=== PATIENT | female | born 1955 | race Caucasian/White ===

== ENCOUNTER → 2023-05-12 11:14 | Outpatient (REF) | payer MEDICARE, OTHER, SELFPAY | LOC: RAD 11:14 | PROVIDERS: ATTENDING PHYSICIAN Internal Medicine | DX: R79.89 Other specified abnormal findings of blood chemistry (principal) | CPT/HCPCS: 76770 ==

== ENCOUNTER → 2023-05-19 12:55 | Outpatient (REF) | payer MEDICARE, OTHER, SELFPAY ==
[2023-05-19 19:19] LABS: Urine Albumin Trace (Neg - Trace); Urine Bilirubin 1+ (Negative); Urine Character Clear (Clear); Urine Color Yellow; Urine Glucose Negative (Negative); Urine Ketone Trace (Negative); Urine Leukocyte 2+ (Negative); Urine Nitrite Positive (Negative); Urine Occult Blood Negative (Negative); Urine Urobilinogen Negative (Neg - 1+)
[2023-05-19 19:25] LABS: Urine Squamous Cell >30 /LPF (Few)
[2023-05-19 19:26] LABS: Urine Bacteria Many (Negative); Urine Red Blood Cell None Seen /HPF (0-2); Urine White Cell 30-40 /HPF (0-5)
== END ==
LOC: CLAB 12:55
PROVIDERS: ATTENDING PHYSICIAN Internal Medicine
DX: R82.90 Unspecified abnormal findings in urine (principal); R31.9 Hematuria, unspecified
CPT/HCPCS: 81003; 81015; 87077; 87086; 87186

== ENCOUNTER → 2023-07-07 06:29 | Day surgery (SDC) | payer MEDICARE, OTHER, SELFPAY ==
[2023-07-07 12:53] LABS: Glucose - Point of Care 119 mg/dl (70-99)
== END ==
LOC: GI 06:29
PROVIDERS: ATTENDING PHYSICIAN Internal Medicine Gastroenterology; FAMILY PHYSICIAN Internal Medicine
DX: Z12.11 Encounter for screening for malignant neoplasm of colon (principal); K64.8 Other hemorrhoids; K57.30 Diverticulosis of large intestine without perforation or abscess without bleeding; R12 Heartburn; R13.10 Dysphagia, unspecified; K31.89 Other diseases of stomach and duodenum; K31.7 Polyp of stomach and duodenum; K29.50 Unspecified chronic gastritis without bleeding; Z86.010 Personal history of colon polyps
CPT/HCPCS: 43239; G0105; 88305; 82962; 88342

== ENCOUNTER → 2023-07-22 09:24 | Outpatient (REF) | payer MEDICARE, OTHER, SELFPAY ==
[2023-07-22 10:48] LABS: ALT (SGPT) < 10 U/L (0-35); AST (SGOT) 32 U/L (14-36); Albumin 4.3 g/dl (3.5-5.0); Alkaline Phosphatase 81 U/L (38-126); Blood Urea Nitrogen 18 mg/dl (7-17); Calcium 9.7 mg/dl (8.4-10.2); Carbon Dioxide 27 mmol/L (22-30); Chloride 104 mmol/L (98-107); Glucose 148 mg/dl (70-99); Phosphorus 4.3 mg/dl (2.5-4.5); Potassium 4.4 mmol/L (3.5-5.1); Sodium 136 mmol/L (135-145); Total Bilirubin 0.6 mg/dl (0.2-1.3); Total Protein 6.8 g/dl (6.3-8.2); Uric Acid 6.5 mg/dl (2.5-6.2)
[2023-07-22 10:55] LABS: Intact PTH 64.1 pg/ml (13.6-85.8)
[2023-07-22 12:01] LABS: Calcium 9.6 mg/dl (8.4-10.2)
[2023-07-22 12:12] LABS: Glycohemoglobin (HgbA1c) 6.7 % (4.0-5.6)
[2023-07-22 13:49] LABS: Urine Protein 7 mg/dl
[2023-07-23 16:10] LABS: Angiotensin-1-converting Enzym 21 U/L (16-85)
[2023-07-23 22:02] LABS: ANA, IgG Reflex to HEp-2 None Detected (None Detected)
[2023-07-25 15:06] LABS: 24 Hour Urine Total Volume Random mL; Urine Collection Length Random hr; Urine Free Kappa Light Chains 45.67 mg/L (0.00-32.90); Urine Free Lambda Light Chains 4.76 mg/L (0.00-3.79)
== END ==
LOC: REG 09:24
PROVIDERS: ATTENDING PHYSICIAN Specialist; FAMILY PHYSICIAN Internal Medicine
DX: E11.69 Type 2 diabetes mellitus with other specified complication (principal); R79.89 Other specified abnormal findings of blood chemistry
CPT/HCPCS: 36415; 80053; 82164; 82570; 83036; 83521; 83970; 84100; 84156; 84550; 86038; 86335

== ENCOUNTER → 2023-12-24 10:44 | Outpatient (REF) | payer MEDICARE, OTHER, SELFPAY ==
[2023-12-24 12:45] LABS: ALT (SGPT) < 10 U/L (0-35); AST (SGOT) 34 U/L (14-36); Albumin 4.3 g/dl (3.5-5.0); Alkaline Phosphatase 92 U/L (38-126); Blood Urea Nitrogen 21 mg/dl (7-17); Calcium 9.7 mg/dl (8.4-10.2); Carbon Dioxide 28 mmol/L (22-30); Chloride 104 mmol/L (98-107); Glucose 162 mg/dl (70-99); HDL Cholesterol 46 mg/dl; LDL Cholesterol, Calculated 125 mg/dl; Potassium 4.3 mmol/L (3.5-5.1); Sodium 144 mmol/L (135-145); Total Bilirubin 0.7 mg/dl (0.2-1.3); Total Cholesterol 212 mg/dl (50-199); Total Protein 6.7 g/dl (6.3-8.2); Triglyceride 205 mg/dl (10-149); Very Low Density Lipoprotein 41 mg/dl (0-30)
[2023-12-24 12:55] LABS: Glycohemoglobin (HgbA1c) 7.8 % (4.0-5.6)
[2023-12-24 13:11] LABS: TSH Reflex To Free T4 2.45 uIU/ml (0.47-4.68)
== END ==
LOC: REG 10:44
PROVIDERS: ATTENDING PHYSICIAN Internal Medicine
DX: E11.69 Type 2 diabetes mellitus with other specified complication (principal); R79.89 Other specified abnormal findings of blood chemistry; G20.A1 Parkinson's disease without dyskinesia, without mention of fluctuations; Z12.31 Encounter for screening mammogram for malignant neoplasm of breast; Z78.0 Asymptomatic menopausal state; I10 Essential (primary) hypertension; E66.9 Obesity, unspecified
CPT/HCPCS: 36415; 80053; 80061; 83036; 84443

== ENCOUNTER → 2024-04-25 11:09 | Outpatient (REF) | payer MEDICARE, OTHER, SELFPAY ==
[2024-04-25 11:57] LABS: % Basophils 0.4 % (0-2); % Immature Granulocytes 0.4 % (0-0.5); % Lymphocytes 22.5 % (20.5-51.1); % Monocytes 5.7 % (1.7-9.3); Absolute Basophils 0.1 10^3/uL (0-0.2); Absolute Eosinophils 0.3 10^3/uL (0-0.7); Absolute Lymphocytes 2.6 10^3/uL (1.2-3.4); Absolute Monocytes 0.7 10^3/uL (0.1-0.6); Absolute Neutrophils 7.7 10^3/uL (1.4-6.5); Hematocrit 43.2 % (37.0-47.0); Hemoglobin 13.9 g/dL (12.0-16.0); Mean Corp Hgb Conc. 32.2 g/dL (33.0-37.0); Mean Corpuscular Hgb 28.3 pg (27.0-31.0); Mean Corpuscular Volume 87.8 fL (81.0-99.0); Nucleated Red Blood Cells % 0 %; Platelet Count 299 10^3/uL (130-400); Red Blood Cell Count 4.92 10^6/uL (4.20-5.40); Red Cell Dist. Width 13.8 % (11.5-14.5); White Blood Cell Count 11.3 10^3/uL (4.8-10.8)
[2024-04-25 13:02] LABS: ALT (SGPT) < 10 U/L (0-35); AST (SGOT) 23 U/L (14-36); Albumin 4.7 g/dl (3.5-5.0); Alkaline Phosphatase 111 U/L (38-126); Blood Urea Nitrogen 30 mg/dl (7-17); Calcium 10.1 mg/dl (8.4-10.2); Carbon Dioxide 27 mmol/L (22-30); Chloride 102 mmol/L (98-107); Glucose 161 mg/dl (70-99); Potassium 4.2 mmol/L (3.5-5.1); Sodium 142 mmol/L (135-145); Total Bilirubin 0.6 mg/dl (0.2-1.3); Total Protein 7.3 g/dl (6.3-8.2)
[2024-04-25 13:35] LABS: Glycohemoglobin (HgbA1c) 8.2 % (4.0-5.6)
== END ==
LOC: REG 11:09
PROVIDERS: ATTENDING PHYSICIAN Internal Medicine
DX: E11.69 Type 2 diabetes mellitus with other specified complication (principal); E78.5 Hyperlipidemia, unspecified; I10 Essential (primary) hypertension; N18.31 Chronic kidney disease, stage 3a
CPT/HCPCS: 36415; 80053; 83036; 85025

== ENCOUNTER → 2024-08-12 09:24 | Outpatient (REF) | payer MEDICARE, OTHER, SELFPAY ==
[2024-08-12 10:06] LABS: % Basophils 0.7 % (0-2); % Eosinophils 3.2 % (0-6); % Immature Granulocytes 0.5 % (0-0.5); % Lymphocytes 26.6 % (20.5-51.1); % Monocytes 7.6 % (1.7-9.3); % Neutrophils 61.4 % (42.2-75.2); Absolute Basophils 0.1 10^3/uL (0-0.2); Absolute Eosinophils 0.3 10^3/uL (0-0.7); Absolute Immature Granulocytes 0.1 10^3/uL (0-0.05); Absolute Lymphocytes 2.5 10^3/uL (1.2-3.4); Absolute Monocytes 0.7 10^3/uL (0.1-0.6); Absolute Neutrophils 5.9 10^3/uL (1.4-6.5); Hematocrit 42.2 % (37.0-47.0); Hemoglobin 13.7 g/dL (12.0-16.0); Mean Corp Hgb Conc. 32.5 g/dL (33.0-37.0); Mean Corpuscular Hgb 28.7 pg (27.0-31.0); Mean Corpuscular Volume 88.5 fL (81.0-99.0); Mean Platelet Volume 10.6 fL (7.4-10.4); Nucleated Red Blood Cells % 0 %; Platelet Count 259 10^3/uL (130-400); Red Blood Cell Count 4.77 10^6/uL (4.20-5.40); Red Cell Dist. Width 13.6 % (11.5-14.5); White Blood Cell Count 9.5 10^3/uL (4.8-10.8)
[2024-08-12 10:22] LABS: Glycohemoglobin (HgbA1c) 8.4 % (4.0-5.6)
[2024-08-12 10:34] LABS: ALT (SGPT) < 10 U/L (0-35); AST (SGOT) 18 U/L (14-36); Albumin 4.6 g/dl (3.5-5.0); Alkaline Phosphatase 100 U/L (38-126); Blood Urea Nitrogen 25 mg/dl (7-17); Calcium 9.6 mg/dl (8.4-10.2); Carbon Dioxide 27 mmol/L (22-30); Chloride 108 mmol/L (98-107); Glucose 197 mg/dl (70-99); HDL Cholesterol 52 mg/dl; LDL Cholesterol, Calculated 64 mg/dl; Potassium 4.6 mmol/L (3.5-5.1); Sodium 143 mmol/L (135-145); Total Bilirubin 0.8 mg/dl (0.2-1.3); Total Cholesterol 150 mg/dl (50-199); Total Protein 6.9 g/dl (6.3-8.2); Triglyceride 170 mg/dl (10-149); Very Low Density Lipoprotein 34 mg/dl (0-30)
== END ==
LOC: REG 09:24
PROVIDERS: ATTENDING PHYSICIAN Internal Medicine
DX: E11.69 Type 2 diabetes mellitus with other specified complication (principal); G20.A1 Parkinson's disease without dyskinesia, without mention of fluctuations; N18.31 Chronic kidney disease, stage 3a; Z96.89 Presence of other specified functional implants; D72.829 Elevated white blood cell count, unspecified
CPT/HCPCS: 36415; 80053; 80061; 83036; 85025

== ENCOUNTER → 2024-11-23 10:05 | Outpatient (REF) | payer MEDICARE, OTHER, SELFPAY | LOC: MRI 10:05 | PROVIDERS: ATTENDING PHYSICIAN Family Medicine; FAMILY PHYSICIAN Internal Medicine | DX: M54.12 Radiculopathy, cervical region (principal) | CPT/HCPCS: 72141 ==

== ENCOUNTER → 2024-11-24 13:00 | Outpatient (REF) | payer MEDICARE, OTHER, SELFPAY | LOC: MRI 13:00 | PROVIDERS: ATTENDING PHYSICIAN Family Medicine; FAMILY PHYSICIAN Internal Medicine | DX: M54.6 Pain in thoracic spine (principal) | CPT/HCPCS: 72146 ==

== ENCOUNTER → 2024-12-30 10:16 | Outpatient (REF) | payer MEDICARE, OTHER, SELFPAY ==
[2024-12-30 11:51] LABS: C-Reactive Protein < 5.00 mg/L (0.0-10.00)
[2024-12-30 11:57] LABS: ALT (SGPT) < 10 U/L (0-35); AST (SGOT) 22 U/L (14-36); Albumin 4.2 g/dl (3.5-5.0); Alkaline Phosphatase 82 U/L (38-126); Blood Urea Nitrogen 18 mg/dl (7-17); Calcium 9.4 mg/dl (8.4-10.2); Carbon Dioxide 30 mmol/L (22-30); Chloride 106 mmol/L (98-107); Glucose 150 mg/dl (70-99); Potassium 4.3 mmol/L (3.5-5.1); Sodium 140 mmol/L (135-145); Total Protein 6.4 g/dl (6.3-8.2); eGFR 54.06
[2024-12-30 12:06] LABS: Microalb - Urine Creatinine 108.500 mg/dl
[2024-12-30 12:09] LABS: Microalbumin, Random Urine 1.5 mg/dl (0.6-1.7)
[2024-12-30 12:17] LABS: Glycohemoglobin (HgbA1c) 7.0 % (4.0-5.6)
[2024-12-30 12:40] LABS: Vitamin B12 > 1000 pg/ml (239-931)
== END ==
LOC: REG 10:16
PROVIDERS: ATTENDING PHYSICIAN Specialist; FAMILY PHYSICIAN Internal Medicine
DX: N18.31 Chronic kidney disease, stage 3a (principal); E11.69 Type 2 diabetes mellitus with other specified complication; G20.A1 Parkinson's disease without dyskinesia, without mention of fluctuations; Z96.89 Presence of other specified functional implants; M25.50 Pain in unspecified joint; R20.0 Anesthesia of skin; R20.2 Paresthesia of skin
CPT/HCPCS: 80053; 82043; 82570; 82607; 82784; 83036; 83970; 84100; 84156; 85652; 86140; 86430

== ENCOUNTER → 2025-03-03 13:14 | Outpatient (REF) | payer MEDICARE, OTHER, SELFPAY ==
[2025-03-03 14:51] LABS: Blood Urea Nitrogen 24 mg/dl (7-17); Calcium 9.8 mg/dl (8.4-10.2); Chloride 104 mmol/L (98-107); Glucose 227 mg/dl (70-99); Potassium 4.3 mmol/L (3.5-5.1); Sodium 138 mmol/L (135-145); eGFR 48.39
[2025-03-03 14:52] LABS: Carbon Dioxide 31 mmol/L (22-30)
== END ==
LOC: REG 13:14
PROVIDERS: ATTENDING PHYSICIAN Specialist; FAMILY PHYSICIAN Internal Medicine
DX: N18.31 Chronic kidney disease, stage 3a (principal)
CPT/HCPCS: 36415; 80048